=== PATIENT | female | born 1995 | race Caucasian/White ===

== ENCOUNTER 2021-11-07 16:26 | Outpatient (CLI) | payer OTHER ==
[2021-11-07] MEDS ORDERED: ADULT LOW DOSE81 M1 PO (16:51)
[2021-11-07] MEDS ORDERED: PRENATAL TABLE1 EAC1 PO (16:51)
[2021-11-07] MEDS ORDERED: FOLIC ACID1 MG PO (16:52)
== END 2021-11-07 20:24 | disposition home or self-care (01) ==
LOC: OBS/DEL 16:26
PROVIDERS: ATTEND Specialist
DX: O16.2 Unspecified maternal hypertension, second trimester (principal); Z3A.24 24 weeks gestation of pregnancy

== ENCOUNTER 2022-02-17 21:15 | Inpatient (IN) | payer OTHER ==
[~2022-02-17] VITALS: Ht 160 cm; Wt 70.8 kg
[~2022-02-17 21:15] MED LIST: ADULT LOW DOSE81 M1 PO; FOLIC ACID1 MG PO; PRENATAL TABLE1 EAC1 PO
[2022-02-17] MEDS ORDERED: IRON18 MG (22:47)
[2022-02-20] MEDS ORDERED: IBU800 MG PO (17:46)
== END 2022-02-20 18:04 | disposition home or self-care (01) | DRG 798 ==
LOC: OB/GYN 21:15 → LDR 21:15 → OB/GYN 02-18 06:19
PROVIDERS: ADMIT Specialist; ATTEND Specialist
PROC: 4A1HXCZ Monitoring of Products of Conception, Cardiac Rate, External Approach (ICD-10-PCS; 2022-02-17)
PROC: 10E0XZZ Delivery of Products of Conception, External Approach (ICD-10-PCS; principal; 2022-02-18)
PROC: 0W8NXZZ Division of Female Perineum, External Approach (ICD-10-PCS; 2022-02-18)
PROC: 0HQ9XZZ Repair Perineum Skin, External Approach (ICD-10-PCS; 2022-02-18)
PROC: 0UB70ZZ Excision of Bilateral Fallopian Tubes, Open Approach (ICD-10-PCS; 2022-02-19)
DX: O70.0 First degree perineal laceration during delivery (principal); Z37.0 Single live birth; Z3A.39 39 weeks gestation of pregnancy; Z30.2 Encounter for sterilization; Z20.822 Contact with and (suspected) exposure to COVID-19